=== PATIENT | female | born 1970 | race Caucasian/White ===

== ENCOUNTER 2021-11-16 08:59 | Emergency (ER) | payer OTHER ==
[~2021-11-16] VITALS: Ht 162.6 cm; Wt 91.6 kg
[2021-11-16] MEDS ORDERED: LEVO-T100 MCG (09:32)
[2021-11-16] MEDS ORDERED: LEVOXYL112 MCG PO (11:18)
[2021-11-16 11:28] VITALS: BP 156/96
== END 2021-11-16 11:29 | disposition home or self-care (01) ==
LOC: M.ERS 08:59
DX: R60.0 Localized edema (principal); E03.9 Hypothyroidism, unspecified; Z76.0 Encounter for issue of repeat prescription; Z79.899 Other long term (current) drug therapy; Z88.0 Allergy status to penicillin; Z88.5 Allergy status to narcotic agent